=== PATIENT | female | born 1990 | race Caucasian/White ===

== ENCOUNTER 2020-11-10 10:59 | Outpatient (REF) | payer OTHER, SELFPAY ==
[2020-11-10 13:34] LABS: Alanine Aminotransferase 20 U/L (0-31); Albumin Level 3.9 g/dL (3.5-5.0); Alkaline Phosphatase 65 U/L (39-117); Anion Gap 13 (12-20); Aspartate Amino Transferase 18 U/L (5-31); Bilirubin Total 0.3 mg/dL (0.0-1.0); Blood Urea Nitrogen 12 mg/dL (9-16); C Reactive Protein 0.34 mg/dL (< or = 0.50); Calcium 8.6 mg/dL (8.4-10.2); Carbon Dioxide 25 mmol/L (22-29); Chloride 107 mmol/L (96-108); Estimated Glomerular Filt Rate > 60; Glucose Random 81 mg/dL (60-115); Potassium 4.4 mmol/L (3.3-5.1); Rheumatoid Factor < 15.0 IU/mL (<15.0); Sodium 141 mmol/L (135-145); Total Protein 6.7 g/dL (6.5-8.0); Uric Acid 3.5 mg/dL (2.4-5.7)
[2020-11-10 13:40] LABS: Erythrocyte Sedimentation Rate 6 MM/HR (0-20)
[2020-11-11 09:02] LABS: Lyme Abs Screen <0.90 index
[2020-11-11 15:02] LABS: Cyclic Citrullinated Peptide <16 UNITS
[2020-11-13 15:02] LABS: Anti Nuclear Antibody Screen NEGATIVE (NEGATIVE)
== END 2020-11-10 11:00 | disposition home or self-care (01) ==
LOC: HO.MANLDS 10:59
PROVIDERS: PCP Internal Medicine; Visit Provider Internal Medicine
DX: M25.50 Pain in unspecified joint (principal)
CPT/HCPCS: 36415; 80053; 84550; 85652; 86038; 86039; 86140; 86200; 86431; 86617; 86618

== ENCOUNTER 2020-11-14 09:18 | Outpatient (REF) | payer OTHER, SELFPAY ==
[2020-11-15 05:51] LABS: EBV-VCA IgG Ab >750.00 U/mL; EBV-VCA IgM Ab <36.00 U/mL
[2020-11-16 22:37] LABS: Parvovirus B19 IgG <0.9; Parvovirus B19 IgM <0.9
== END 2020-11-14 09:19 | disposition home or self-care (01) ==
LOC: HO.MANLDS 09:18
PROVIDERS: PCP Internal Medicine; Visit Provider Internal Medicine
DX: M25.50 Pain in unspecified joint (principal)
CPT/HCPCS: 36415; 86664; 86665; 86747